=== PATIENT | male | born 1970 | race Caucasian/White ===

== ENCOUNTER 2023-09-29 17:04 | Emergency (ER) | payer OTHER, MEDICARE, MEDICAID | END 2023-09-29 18:16 | disposition home or self-care (01) | LOC: VM.ED 17:04 | DX: S09.90XA Unspecified injury of head, initial encounter (principal); E11.9 Type 2 diabetes mellitus without complications; Z88.5 Allergy status to narcotic agent; Z88.8 Allergy status to other drugs, medicaments and biological substances; W22.8XXA Striking against or struck by other objects, initial encounter | CPT/HCPCS: 70450; 99283; 99284 ==

== ENCOUNTER 2024-11-28 18:15 | Emergency (ER) | payer MEDICARE, MEDICAID | END 2024-11-28 18:40 | LOC: VM.ED 18:15 | DX: M79.672 Pain in left foot (principal); E78.00 Pure hypercholesterolemia, unspecified; E11.40 Type 2 diabetes mellitus with diabetic neuropathy, unspecified; Z88.5 Allergy status to narcotic agent; Z88.8 Allergy status to other drugs, medicaments and biological substances | CPT/HCPCS: 99283 ==

== ENCOUNTER 2024-12-08 17:40 | Emergency (ER) | payer MEDICARE, MEDICAID | END 2024-12-08 18:49 | disposition home or self-care (01) | LOC: VM.ED 17:40 | DX: T83.098A Other mechanical complication of other urinary catheter, initial encounter (principal); E11.21 Type 2 diabetes mellitus with diabetic nephropathy; Z88.5 Allergy status to narcotic agent; Z88.8 Allergy status to other drugs, medicaments and biological substances; Z96.0 Presence of urogenital implants | CPT/HCPCS: 99283; A9270-GY ==

== ENCOUNTER 2024-12-08 23:20 | Emergency (ER) | payer MEDICARE, MEDICAID ==
[2024-12-08] MEDS: Oxybutynin 5 MG Tab.ER PO ONE (23:54)
== END 2024-12-09 | disposition home or self-care (01) ==
LOC: VM.ED 23:20
DX: T83.031A Leakage of indwelling urethral catheter, initial encounter (principal); N32.89 Other specified disorders of bladder; E78.00 Pure hypercholesterolemia, unspecified; E11.21 Type 2 diabetes mellitus with diabetic nephropathy; Z88.5 Allergy status to narcotic agent; Z88.8 Allergy status to other drugs, medicaments and biological substances; Y73.2 Prosthetic and other implants, materials and accessory gastroenterology and urology devices associated with adverse incidents
CPT/HCPCS: 99283; A9270-GY

== ENCOUNTER 2025-05-14 14:08 | Emergency (ER) | payer MEDICARE, MEDICAID ==
[2025-05-14] MEDS: Ondansetron 4 MG/2 ML SDV IVPUSH ONE (14:28)
[2025-05-14 14:34] LABS: BASOPHILS ABSOLUTE AUTO 0.0 x10^3/uL (0.0-0.2); BASOPHILS PERCENT AUTO 0.2 % (0.2-1.2); EOSINOPHILS ABSOLUTE AUTO 0.1 x10^3/uL (0.0-0.5); EOSINOPHILS PERCENT AUTO 1.8 % (0.0-4.0); IMMATURE GRAN ABSOLUTE AUTO 0.05 x10^3/uL (0.00-0.07); IMMATURE GRAN PERCENT AUTO 0.90 % (0.00-0.43); LYMPHOCYTES ABSOLUTE AUTO 2.6 x10^3/uL (1.0-4.8); LYMPHOCYTES PERCENT AUTO 46.0 % (25.0-50.0); MONOCYTES ABSOLUTE AUTO 0.6 x10^3/uL (0.0-0.8); MONOCYTES PERCENT AUTO 10.0 % (2.0-11.0); NEUTROPHILS ABSOLUTE AUTO 2.3 x10^3/uL (1.8-7.7); NEUTROPHILS PERCENT AUTO 41.1 % (50.0-80.0); PLATELET COUNT,PLT 217 x10^3/uL (130-400); RED BLOOD CELL COUNT 5.17 x10^6/uL (4.5-6.0); WHITE BLOOD CELL COUNT,WBC 5.6 x10^3/uL (4.0-10.0)
[2025-05-14 15:07] LABS: A/G RATIO 1.28; ALANINE AMINOTRANSFERASE,ALT 27 U/L (16-63); ASPARTATE AMNIOTRANSFERASE,AST 20 U/L (15-37); BILIRUBIN TOTAL 0.5 mg/dL (0.2-1.0); BLOOD UREA NITROGEN,BUN 17 mg/dL (7-18); CARBON DIOXIDE,CO2 25 mmol/L (21-32); CHLORIDE,CL 107 mmol/L (98-107); CREATININE 1.0 mg/dL (0.70-1.30); GLUCOSE RANDOM 243 mg/dL (70-99); POTASSIUM,K 3.6 mmol/L (3.5-5.1); PROTEIN TOTAL,TP 7.3 g/dL (6.4-8.2); SODIUM,NA 144 mmol/L (136-145)
[2025-05-14 15:08] LABS: ESTIMATED GFR 89 mL/min (>=60)
[2025-05-14 15:20] LABS: APPEARANCE,URINE CLEAR (CLEAR); GLUCOSE,URINE 500 mg/dL (NEGATIVE); OCCULT BLOOD,URINE NEGATIVE (NEGATIVE)
[2025-05-14 15:29] LABS: SQUAMOUS EPITHELIAL CELLS,UR RARE /HPF (NOT SEEN)
[2025-05-14] MEDS: Take Home: Ondansetron 4 MG Tab.DIS, 5 Tab Pack PO ONE (17:30)
== END 2025-05-14 17:35 | disposition home or self-care (01) ==
LOC: VM.ED 14:08
DX: E11.65 Type 2 diabetes mellitus with hyperglycemia (principal); E11.40 Type 2 diabetes mellitus with diabetic neuropathy, unspecified; Z88.8 Allergy status to other drugs, medicaments and biological substances; Z88.5 Allergy status to narcotic agent
CPT/HCPCS: 36415; 80053; 81001; 83036; 83605; 83690; 83735; 84484; 85025; 93005; 96361; 96365; 96375; 99284; J2405; J2543; J7030; Q0162

== ENCOUNTER 2025-05-14 17:47 | Emergency (ER) | payer MEDICARE, MEDICAID | END 2025-05-14 18:40 | disposition home or self-care (01) | LOC: VM.ED 17:47 | DX: R42 Dizziness and giddiness (principal); E11.9 Type 2 diabetes mellitus without complications; Z88.5 Allergy status to narcotic agent; Z88.8 Allergy status to other drugs, medicaments and biological substances | CPT/HCPCS: 70450; 99284 ==